=== PATIENT | female | born 1965 ===

== ENCOUNTER 2017-05-15 19:50 | Observation (INO) | payer BC, OTHER ==
[2017-05-16] MEDS ORDERED: IPRATROPIUM-ALBUTEROL 3 ML NEB INHALATION PRN (01:56)
[2017-05-16] MEDS: methylPREDNISolone SOD SUCCI 125 MG/2 ML VIAL IV SCH ×4 (06:12→23:51)
[2017-05-16] MEDS: SODIUM CHLORIDE 0.9% 1,000 ML IV SCH (06:15)
[2017-05-16] MEDS: SYMBICORT 160-4.5 MCG INHALER INHALATION SCH ×2 (07:05→20:44)
[2017-05-16] MEDS: IPRATROPIUM-ALBUTEROL 3 ML NEB INHALATION SCH ×4 (07:05→20:44)
[2017-05-16 07:42] LABS: Glucose,Whole Blood 123 mg/dL (75-99)
[2017-05-16] MEDS: amLODIPine 10 MG TAB PO SCH (08:13)
[2017-05-16] MEDS: HYDROCHLOROTHIAZIDE 25 MG TAB PO SCH (08:13)
[2017-05-16] MEDS: HEPARIN SODIUM,PORCINE 5,000 UNIT/ML 1 ML VIAL SQ SCH ×3 (08:13→23:51)
[2017-05-16] MEDS: AZITHROMYCIN 500 MG TAB PO SCH (08:13)
[2017-05-16] MEDS: PANTOPRAZOLE 40 MG TABLET PO SCH (08:13)
[2017-05-16 08:26] LABS: Basophils % (A) 0 %; CHCM 31.8; Eosinophils % (A) 0 %; HCT 39.5 % (34.0-46.0); HDW 2.18; HGB 12.9 gm/dL (11.4-16.0); Luc # (Auto) 0.04; Luc % (Auto) 0; Lymphocytes # (A) 0.8 k/uL (1.0-4.8); Lymphocytes % (A) 9 %; MCHC 32.7 g/dL (31.0-37.0); MCV 94.8 fL (80.0-100.0); Monocytes # (A) 0.2 k/uL (0-1.0); Monocytes % (A) 2 %; Neutrophils # (A) 8.1 k/uL (1.3-7.7); Neutrophils % (A) 88 %; RBC 4.16 m/uL (3.80-5.40); RDW 13.3 % (11.5-15.5); WBC 9.2 k/uL (3.8-10.6); WBC (Perox) 9.58
[2017-05-16 08:41] LABS: Anion Gap 10 mmol/L; Blood Urea Nitrogen 13 mg/dL (7-17); Calcium 9.3 mg/dL (8.4-10.2); Carbon Dioxide 22 mmol/L (22-30); Chloride 107 mmol/L (98-107); Glucose 145 mg/dL (74-99); Magnesium 1.7 mg/dL (1.6-2.3); Non-African American GFR(MDRD) >60 (>60 ml/min/1.73 sqM); Potassium 4.2 mmol/L (3.5-5.1); Sodium 139 mmol/L (137-145)
[2017-05-16] MEDS ORDERED: Magnesium Replacement Protocol 1 EACH MISC MISCELLANE PRN (10:02)
[2017-05-16 12:37] LABS: Glucose,Whole Blood 114 mg/dL (75-99)
[2017-05-16 12:54] LABS: Hemoglobin A1C 5.7 % (4.2-6.1)
[2017-05-16 17:03] LABS: Glucose,Whole Blood 115 mg/dL (75-99)
[2017-05-16] MEDS: TEMAZEPAM 15 MG CAP PO PRN (21:56)
--- NOTE | 2017-05-16 22:08 | P.HPIM ---
History of Present Illness H&P Date: 05/16/17 Chief Complaint: Difficulty in breathing Patient is a 51-year-old female with a known history of COPD on home oxygen which she uses occasionally, hypertension, degenerative disc disease and other medical problems initially presented to the [facility] with complaints of difficulty breathing for the past 2 days. Patient was transferred to [facility] for further evaluation. Patient did have exacerbation of COPD about a year back at [facility]. Patient did have a cough at home but with minimal sputum production. No fever and no chills. No compressive chest pain. Patient has never been intubated in the past. Evidently patient has been out of her medications for the past 2 weeks. Denied any exposure to cold weather. No recent travel or sick contacts at home. Patient did have a smoking history significantly. Quit one year back. Patient had chest x-ray at [facility] showed COPD changes. No pneumonia or pneumothorax Review of Systems CONSTITUTIONAL: No fever, no malaise, no fatigue. HEENT: No recent visual problems or hearing problems. Denied any sore throat. CARDIOVASCULAR: No chest pain, orthopnea, PND, no palpitations, no syncope. PULMONARY: Cough with minimal sputum production. And difficulty breathing.. GASTROINTESTINAL: No diarrhea, no nausea, no vomiting, no abdominal pain. Normoactive bowel sounds. NEUROLOGICAL: No headaches, no weakness, no numbness. HEMATOLOGICAL: Denies any bleeding or petechiae. GENITOURINARY: Denies any burning micturition, frequency, or urgency. MUSCULOSKELETAL/RHEUMATOLOGICAL: Denies any joint pain, swelling, or any muscle pain. ENDOCRINE: Denies any polyuria or polydipsia. The rest of the 14-point review of systems is negative. Past Medical History Past Medical History: Asthma, Chest Pain / Angina, COPD, Deep Vein Thrombosis ( DVT), GERD/Reflux, Hypertension, Osteoarthritis (OA), Pneumonia, Respiratory Disorder Additional Past Medical History / Comment(s): Degenerative Disk Disease, Herniated disk in lumbar, Sciatica, post menopausal History of Any Multi-Drug Resistant Organisms: None Reported Past Surgical History: Cholecystectomy Past Anesthesia/Blood Transfusion Reactions: No Reported Reaction Past Psychological History: Anxiety, Bipolar, Depression, Panic Disorder, PTSD Smoking Status: Former smoker Past Alcohol Use History: None Reported Past Drug Use History: Cocaine Additional Drug Use History / Comment(s): used for 9 years, started when 34 years old, went to rehab and has been sober since 2006. - Past Family History Father Family Medical History: Cancer, Diabetes Mellitus, Hypertension Additional Family Medical History / Comment(s): prostate cancer Mother Family Medical History: COPD Brother(s) History Unknown: Yes Sister(s) History Unknown: Yes Medications and Allergies Home Medications Medication Instructions Recorded Confirmed Type Albuterol Inhaler [Ventolin Hfa 1 - 2 puff INHALATION RT-Q4H PRN 05/15/17 History Inhaler] Budesonide-Formot 160-4.5 Mcg 2 puff INHALATION RT-BID 05/15/17 05/16/17 History [Symbicort 160-4.5 Mcg Inhaler] Hydrochlorothiazide [Hydrodiuril] 25 mg PO DAILY 05/15/17 05/16/17 History Omeprazole 20 mg PO AC-BRKFST 05/15/17 05/16/17 History Tiotropium [place] [Spiriva] 1 cap INHALATION RT-DAILY 05/15/17 05/15/17 History amLODIPine [Norvasc] 10 mg PO DAILY 05/15/17 05/16/17 History Allergies Allergy/AdvReac Type Severity Reaction Status Date / Time No Known Allergies Allergy Verified 05/15/17 23:57 Physical Exam Vitals: Vital Signs Temp Pulse Pulse Resp BP Pulse Ox 05/16/17 11:05 92 05/16/17 10:56 88 05/16/17 07:19 90 05/16/17 07:08 94 94 L 05/16/17 07:00 96.7 F L 61 16 123/71 96 05/15/17 23:03 97.0 F L 93 18 125/60 96 Intake and Output 05/15/17 05/16/17 05/16/17 22:59 06:59 14:59 Intake Total 1000 Balance 1000 Intake: Intake, IV Titration 1000 Amount Sodium Chloride 0.9% 1, 1000 000 ml @ 20 mls/hr IV . Q24H [facility] Rx#:[id number] Other: Voiding Method Toilet # Voids 1 Weight 56 kg PHYSICAL EXAMINATION: Patient is lying in the bed comfortably, no acute distress, awake alert and oriented.. HEENT: Normocephalic. Neck is supple. Pupils reactive. Nostrils clear. Oral cavity is moist. Ears reveal no drainage. Neck reveals no JVD, carotid bruits, or thyromegaly. CHEST EXAMINATION: Trachea is central. Symmetrical expansion. Bilateral diffuse wheezing present. No crackles.. CARDIAC: Normal S1, S2 with no gallops. No murmurs ABDOMEN: Soft. Bowel sounds normal. No organomegaly. No abdominal bruits. Extremities reveal no edema. No clubbing or cyanosis Neurologically awake, alert, oriented x3 with well-coordinated movements. Skin: no rash or skin lesions Musculoskeletal: no joint swelling or deformity. Results CBC & Chem 7: 05/16/17 07:51 05/16/17 07:51 Labs: Abnormal Lab Results - Last 24 Hours (Table) 05/16/17 05/16/17 05/16/17 Range/Units 07:04 07:51 07:51 Neutrophils # 8.1 H (1.3-7.7) k/uL Lymphocytes # 0.8 L (1.0-4.8) k/uL Glucose 145 H (74-99) mg/dL POC Glucose (mg/dL) 123 H (75-99) mg/dL Thrombosis Risk Factor Assmnt - DVT/VTE Prophylaxis DVT/VTE Prophylaxis: Pharmacologic Prophylaxis ordered - Choose All That Apply Any of the Below Risk Factors Present?: Yes Each Factor Represents 1 point: Abnormal pulmonary function (COPD), Age 41-60 years Other Risk Factors: Yes Each Risk Factor Represents 3 Points: History of DVT/PE Other congenital or acquired thrombophilia - If yes, enter type in comment: No Thrombosis Risk Factor Assessment Total Risk Factor Score: 5 Thrombosis Risk Factor Assessment Level: High Risk Assessment and Plan Plan: #1 acute COPD exacerbation #2 acute tracheobronchitis. #3 hypertension. Controlled. #4 degenerative joint disease. #5 COPD on home oxygen. Patient is not using on a regular basis #6 DVT prophylaxis Plan: Patient will be continued on IV Solu-Medrol and breathing treatments. Continue the antibiotics and the fall of ceftriaxone and azithromycin. We will continue with the DVT prophylaxis and follow up closely. Time with Patient: Greater than 30
[2017-05-17] MEDS: SODIUM CHLORIDE 0.9% 1,000 ML IV SCH (03:20)
[2017-05-17] MEDS: methylPREDNISolone SOD SUCCI 125 MG/2 ML VIAL IV SCH ×3 (05:41→18:01)
[2017-05-17 07:16] LABS: Glucose,Whole Blood 126 mg/dL (75-99)
[2017-05-17] MEDS: IPRATROPIUM-ALBUTEROL 3 ML NEB INHALATION SCH ×4 (07:44→19:15)
[2017-05-17] MEDS: SYMBICORT 160-4.5 MCG INHALER INHALATION SCH ×2 (07:44→19:15)
[2017-05-17] MEDS: HYDROCHLOROTHIAZIDE 25 MG TAB PO SCH (08:15)
[2017-05-17] MEDS: PANTOPRAZOLE 40 MG TABLET PO SCH (08:15)
[2017-05-17] MEDS: amLODIPine 10 MG TAB PO SCH (08:15)
[2017-05-17] MEDS: AZITHROMYCIN 500 MG TAB PO SCH (08:15)
[2017-05-17] MEDS: HEPARIN SODIUM,PORCINE 5,000 UNIT/ML 1 ML VIAL SQ SCH ×2 (08:17→17:02)
[2017-05-17 12:10] LABS: Glucose,Whole Blood 103 mg/dL (75-99)
--- NOTE | 2017-05-17 12:22 | CDI ---
[facility] [address] [facility] [place] [address] Documentation Clarification Form Date: 05/17/2017 12:14:00 PM From: Lesley Blair Admit Date: 05/15/2017 10:55:00 PM Patient Name: Ava Johnson Visit Number: [id number] Dr. Patrica Herrera The patient presented with the following respiratory symptoms: difficulty in breathing. Documentation and location in medical record included: History/Risk Factors: COPD, exsmoker Clinical Indicators: H&P states 'COPD on home oxygen' Treatment: Breathing tx O2 nasal cannula In your professional opinion, can you please clarify if these findings signify one of the following conditions? o Chronic Respiratory failure with hypercapnia o Chronic Respiratory failure with hypoxia o Chronic Respiratory failure unknown type o Other Diagnosis, please specify o Unable to determine Please document in your progress notes and discharge summary in order to capture severity of illness and risk of mortality. Include clinical findings that support your diagnosis. FYI: Press F11 to launch patient chart. EMMY
[2017-05-17] MEDS ORDERED: guaiFENesin SYRUP 100MG/5ML 200 MG/10 ML CUP PO PRN (14:28)
[2017-05-17] MEDS ORDERED: guaiFENesin-DM 100-10MG/5ML 10 ML CUP PO PRN (14:43)
[2017-05-17 17:10] LABS: Glucose,Whole Blood 119 mg/dL (75-99)
[2017-05-17 20:57] LABS: Glucose,Whole Blood 125 mg/dL (75-99)
[2017-05-17] MEDS: TEMAZEPAM 15 MG CAP PO PRN (22:16)
--- NOTE | 2017-05-17 23:11 | P.PN ---
Subjective Principal diagnosis: Acute COPD exacerbation Patient is a 51-year-old female with a known history of COPD on home oxygen which she uses occasionally, hypertension, degenerative disc disease and other medical problems initially presented to the [facility] with complaints of difficulty breathing for the past 2 days. Patient was transferred to [facility] for further evaluation. Patient did have exacerbation of COPD about a year back at [facility]. Patient did have a cough at home but with minimal sputum production. No fever and no chills. No compressive chest pain. Patient has never been intubated in the past. Evidently patient has been out of her medications for the past 2 weeks. Denied any exposure to cold weather. No recent travel or sick contacts at home. Patient did have a smoking history significantly. Quit one year back. Patient had chest x-ray at [facility] showed COPD changes. No pneumonia or pneumothorax 05/17/2017. Patient says that her breathing is improving. Patient otherwise still having wheezing. No other acute overnight issues. Patient is complaining of cough with yellowish sputum production and requesting cough syrup. No fever no chills. No compressive chest pain. No nausea no vomiting no abdominal pain or diarrhea. Objective - Vital Signs Vital signs: Vital Signs Temp 97.1 F L 05/17/17 15:00 Pulse 95 05/17/17 19:29 Resp 18 05/17/17 15:02 BP 128/62 05/17/17 15:00 Pulse Ox 95 05/17/17 15:13 Intake & Output 05/17/17 05/17/17 05/18/17 06:59 18:59 06:59 Weight 56 kg Other: Voiding Method Toilet Toilet # Voids 2 1 - Exam Patient is lying in the bed comfortably, no acute distress, awake alert and oriented.. HEENT: Normocephalic. Neck is supple. Pupils reactive. Nostrils clear. Oral cavity is moist. Ears reveal no drainage. Neck reveals no JVD, carotid bruits, or thyromegaly. CHEST EXAMINATION: Trachea is central. Symmetrical expansion. Expiratory wheezing. Improved air entry. No crackles.. CARDIAC: Normal S1, S2 with no gallops. No murmurs ABDOMEN: Soft. Bowel sounds normal. No organomegaly. No abdominal bruits. Extremities reveal no edema. No clubbing or cyanosis Neurologically awake, alert, oriented x3 with well-coordinated movements. Skin: no rash or skin lesions Musculoskeletal: no joint swelling or deformity. - Labs CBC & Chem 7: 05/16/17 07:51 05/16/17 07:51 Labs: Abnormal Lab Results - Last 24 Hours (Table) 05/17/17 05/17/17 05/17/17 Range/Units 07:14 12:06 16:57 POC Glucose (mg/dL) 126 H 103 H 119 H (75-99) mg/dL 05/17/17 Range/Units 20:53 POC Glucose (mg/dL) 125 H (75-99) mg/dL Assessment and Plan Plan: #1 acute COPD exacerbation. Patient is still wheezing #2 acute tracheobronchitis. #3 hypertension. Controlled. #4 degenerative joint disease. #5 COPD on home oxygen. Patient is not using on a regular basis #6 DVT prophylaxis Plan: Patient will be continued on IV Solu-Medrol and breathing treatments. Continue the antibiotics and the fall of ceftriaxone and azithromycin. Will change his IV Solu-Medrol to prednisone. Patient was started on Robitussin-DM for cough. We will continue with the DVT prophylaxis and follow up closely.
[2017-05-18] MEDS: methylPREDNISolone SOD SUCCI 125 MG/2 ML VIAL IV SCH ×3 (00:40→13:01)
[2017-05-18] MEDS: HEPARIN SODIUM,PORCINE 5,000 UNIT/ML 1 ML VIAL SQ SCH ×4 (00:41→14:44)
[2017-05-18] MEDS: SODIUM CHLORIDE 0.9% 1,000 ML IV SCH (02:36)
[2017-05-18 07:33] LABS: Glucose,Whole Blood 111 mg/dL (75-99)
[2017-05-18 07:43] VITALS: BP 142/80; TEMP 96.6
[2017-05-18] MEDS: PANTOPRAZOLE 40 MG TABLET PO SCH (07:56)
[2017-05-18] MEDS: amLODIPine 10 MG TAB PO SCH (07:57)
[2017-05-18] MEDS: AZITHROMYCIN 500 MG TAB PO SCH (07:57)
[2017-05-18] MEDS: HYDROCHLOROTHIAZIDE 25 MG TAB PO SCH (07:57)
[2017-05-18] MEDS: SYMBICORT 160-4.5 MCG INHALER INHALATION SCH (08:06)
[2017-05-18] MEDS: IPRATROPIUM-ALBUTEROL 3 ML NEB INHALATION SCH ×3 (08:06→15:37)
[2017-05-18 08:09] VITALS: RESP 16
[2017-05-18 12:04] LABS: Glucose,Whole Blood 82 mg/dL (75-99)
[2017-05-18] MEDS ORDERED: predniSONE 50 MG TAB PO SCH (13:30)
[2017-05-18 15:47] VITALS: PULSE 90
--- NOTE | 2017-07-01 22:25 | P.DS ---
Providers Date of admission: 05/15/17 22:55 Expected date of discharge: 05/18/17 Attending physician: Patrica Herrera Primary care physician: Stated None Hospital Course: Discharge diagnosis #1 acute COPD exacerbation #2 acute tracheobronchitis. #3 hypertension. Controlled. #4 degenerative joint disease. #5 COPD on home oxygen/ chronic hypoxic respiratory failure on home oxygen. Patient is not using on a regular basis #6 DVT prophylaxis Hospital course Patient is a 51-year-old female with a known history of COPD on home oxygen which she uses occasionally, hypertension, degenerative disc disease and other medical problems initially presented to the [facility] with complaints of difficulty breathing for the past 2 days. Patient was transferred to [facility] for further evaluation. Patient did have exacerbation of COPD about a year back at [facility]. Patient did have a cough at home but with minimal sputum production. No fever and no chills. No compressive chest pain. Patient has never been intubated in the past. Evidently patient has been out of her medications for the past 2 weeks. Denied any exposure to cold weather. No recent travel or sick contacts at home. Patient did have a smoking history significantly. Quit one year back. Patient had chest x-ray at [facility] showed COPD changes. No pneumonia or pneumothorax Patient was continued on IV Solu-Medrol and breathing treatments. Continued the antibiotics and the fall of ceftriaxone and azithromycin. Patient did improve clinically and will be discharged home with steroid [place] dose. Discharge physical examination was done Patient Condition at Discharge: Fair Plan - Discharge Summary New Discharge Prescriptions: New Albuterol Nebulized [Ventolin Nebulized] 2.5 mg INHALATION Q6H PRN #60 ml PRN Reason: Wheezing Azithromycin [Zithromax] 500 mg PO DAILY #3 tab Temazepam [Restoril] 15 mg PO HS PRN #7 cap PRN Reason: Insomnia predniSONE See Taper PO DAILY #21 tab Continue Tiotropium [place] [Spiriva] 1 cap INHALATION RT-DAILY Omeprazole 20 mg PO AC-BRKFST Budesonide-Formot 160-4.5 Mcg [Symbicort 160-4.5 Mcg Inhaler] 2 puff INHALATION RT-BID Albuterol Inhaler [Ventolin Hfa Inhaler] 1 - 2 puff INHALATION RT-Q4H PRN PRN Reason: Shortness Of Breath amLODIPine [Norvasc] 10 mg PO DAILY Hydrochlorothiazide [Hydrodiuril] 25 mg PO DAILY Discharge Medication List Albuterol Inhaler [Ventolin Hfa Inhaler] 1 - 2 puff INHALATION RT-Q4H PRN [History] Budesonide-Formot 160-4.5 Mcg [Symbicort 160-4.5 Mcg Inhaler] 2 puff INHALATION RT-BID 05/15/17 [History] Hydrochlorothiazide [Hydrodiuril] 25 mg PO DAILY 05/15/17 [History] Omeprazole 20 mg PO AC-BRKFST 05/15/17 [History] Tiotropium [place] [Spiriva] 1 cap INHALATION RT-DAILY 05/15/17 [History] amLODIPine [Norvasc] 10 mg PO DAILY 05/15/17 [History] Albuterol Nebulized [Ventolin Nebulized] 2.5 mg INHALATION Q6H PRN #60 ml [Rx] Azithromycin [Zithromax] 500 mg PO DAILY #3 tab 05/18/17 [Rx] Temazepam [Restoril] 15 mg PO HS PRN #7 cap 05/18/17 [Rx] predniSONE See Taper PO DAILY #21 tab 05/18/17 [Rx] Discharge Disposition: HOME SELF-CARE
== END 2017-05-18 15:55 | disposition home or self-care (01) ==
LOC: 4MS4W 22:55 → INTOOBSV 22:55
PROVIDERS: ADMIT Internal Medicine; ATTEND Internal Medicine
DX: J44.1 Chronic obstructive pulmonary disease with (acute) exacerbation (principal); Z99.81 Dependence on supplemental oxygen; J44.0 Chronic obstructive pulmonary disease with (acute) lower respiratory infection; J20.9 Acute bronchitis, unspecified; I10 Essential (primary) hypertension; K21.9 Gastro-esophageal reflux disease without esophagitis; M51.36 Other intervertebral disc degeneration, lumbar region; M19.90 Unspecified osteoarthritis, unspecified site; M54.30 Sciatica, unspecified side; Z83.3 Family history of diabetes mellitus; Z82.5 Family history of asthma and other chronic lower respiratory diseases; Z82.49 Family history of ischemic heart disease and other diseases of the circulatory system; Z87.891 Personal history of nicotine dependence; Z79.899 Other long term (current) drug therapy; Z79.51 Long term (current) use of inhaled steroids; Z90.49 Acquired absence of other specified parts of digestive tract; Z91.14 Patient's other noncompliance with medication regimen; Z86.79 Personal history of other diseases of the circulatory system; Z86.718 Personal history of other venous thrombosis and embolism; Z87.01 Personal history of pneumonia (recurrent); Z80.42 Family history of malignant neoplasm of prostate
CPT/HCPCS: 96376 ×3; 96365; 96366 ×2; 96375; 94640 ×6; 94760 ×2; 80048; 83036; 83735 ×2; 85025; G0379; G0378 ×4; J2930 ×3; J0696 ×3; J7512

== ENCOUNTER → 2019-05-21 | Outpatient (CLI) | payer OTHER ==
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
== END | disposition home or self-care (01) ==
LOC: PNWHC3 13:39
PROVIDERS: ATTEND Student in an Organized Health Care Education/Training Program
DX: M54.16 Radiculopathy, lumbar region (principal); F14.10 Cocaine abuse, uncomplicated; Z87.891 Personal history of nicotine dependence; Z91.410 Personal history of adult physical and sexual abuse; Z79.1 Long term (current) use of non-steroidal anti-inflammatories (NSAID); Z79.899 Other long term (current) drug therapy; Z79.891 Long term (current) use of opiate analgesic; Z79.51 Long term (current) use of inhaled steroids
CPT/HCPCS: 99211

== ENCOUNTER 2019-06-09 08:16 | Day surgery (SDC) | payer OTHER ==
[2019-06-04 13:36] VITALS: BMI 18.8
[~2019-06-09 08:16] MED LIST: LACTATED RINGERS 1,000 ML IV SCH
[2019-06-09 09:11] VITALS: TEMP 98.2
[2019-06-09] MEDS ORDERED: LACTATED RINGERS 1,000 ML IV ONE (09:11)
[2019-06-09 09:19] LABS: Glucose,Whole Blood 75 mg/dL (75-99)
[2019-06-09] MEDS ORDERED: LIDOCAINE 1% 20 ML VIAL (10MG/ML) FOR IV START INTRADERMA ONE (09:20)
--- NOTE | 2019-06-09 10:13 | P.PCN ---
Date of Procedure: 06/09/19 Procedure(s) Performed: PREOPERATIVE DIAGNOSIS: Lumbar Radicular pain POSTOPERATIVE DIAGNOSIS: Same PROCEDURE Lumbar epidural steroid injection under fluoroscopic guidance at the L5-S1, left paramedian level. ANESTHESIA: Local with 1% lidocaine 3 ml; moderate sedation with 1 mg of midazolam, 100 g of fentanyl EBL: Minimal PROCEDURE INDICATION: By radicular pain, left. PROCEDURE DESCRIPTION / TECHNIQUE: The patient was seen and identified in the preoperative area. Risks, benefits, complications including but not limited to infections ,bleeding ,allergic reaction to the medications ,nerve damage and not complete pain relief , and alternatives were discussed with the patient. The patient agreed to proceed with the procedure and signed the consent. IV was started, and vital signs were stable. Patient was taken to the OR and time out was completed. The patient was placed in the prone position on procedure table and a pillow was placed under the abdomen to reduce lumbar lordosis. The lumbosacral area was prepped and draped in the usual sterile fashion. The patient was closely monitored during the procedure. Conscious sedation was used during the procedure to decrease patients anxiety. Vital signs was monitored during the entire procedure. Using anterior-posterior fluoroscopy, the L5-S1 interlaminar space was identified and the skin over this site was marked and then infiltrated with 1% lidocaine subcutaneously. Subsequently, a 20-gauge Tuohy epidural needle was inserted and advanced toward the epidural space using the loss of resistance technique and guided by AP and lateral fluoroscopy. The correct needle position in the epidural space was verified. After negative aspiration, a solution containing ED milligrams of Depo-Medrol, 2 mL of 1% preservative-free lidocaine, 2 mL of preservative-free normal saline was injected. The needle was withdrawn intact, skin was cleansed, and bandages were applied. Images were saved to the chart. COMPLICATIONS: None DISPOSITION / PLANS: The patient was returned to the supine position and transferred to the recovery area in a stable condition for observation. There was no evidence of lower extremity motor or sensory deficit after the procedure. Patient was discharged from the recovery room after meeting discharge criteria. Home discharge instructions were given to the patient by the staff. Follow up plan: For repeat procedure, if she has good relief with this procedure.
[2019-06-09] MEDS ORDERED: IV FLUID CONTINUATION 1,000 ML IV ONE (10:17)
[2019-06-09 10:25] VITALS: RESP 16
[2019-06-09 10:41] VITALS: BP 115/76; PULSE 76
--- NOTE | 2019-06-09 13:45 | FL ---
Fluoroscopy HISTORY: Pain 7 seconds fluoroscopy time supplied to the referring clinician. 2 intraoperative C-arm images docume nt the procedure. See dictated report from anesthesia.
== END 2019-06-09 10:51 ==
LOC: ORPAIN 08:16
PROVIDERS: ATTEND Student in an Organized Health Care Education/Training Program
DX: M51.16 Intervertebral disc disorders with radiculopathy, lumbar region (principal); J44.9 Chronic obstructive pulmonary disease, unspecified; I10 Essential (primary) hypertension; F14.11 Cocaine abuse, in remission; K21.9 Gastro-esophageal reflux disease without esophagitis; M19.90 Unspecified osteoarthritis, unspecified site; Z86.718 Personal history of other venous thrombosis and embolism; Z91.410 Personal history of adult physical and sexual abuse; Z87.01 Personal history of pneumonia (recurrent); Z90.49 Acquired absence of other specified parts of digestive tract; Z98.51 Tubal ligation status; Z87.891 Personal history of nicotine dependence; Z79.51 Long term (current) use of inhaled steroids; Z79.52 Long term (current) use of systemic steroids; Z79.899 Other long term (current) drug therapy; Z83.3 Family history of diabetes mellitus; Z82.49 Family history of ischemic heart disease and other diseases of the circulatory system; Z80.42 Family history of malignant neoplasm of prostate; Z83.6 Family history of other diseases of the respiratory system
CPT/HCPCS: 62323; J2250; J1030; J3010; Q9966

== ENCOUNTER 2019-07-07 06:58 | Day surgery (SDC) | payer OTHER ==
[2019-07-03 15:12] VITALS: BMI 18.7
[2019-07-07 07:22] VITALS: TEMP 97.7
--- NOTE | 2019-07-07 08:08 | P.PCN ---
Date of Procedure: 07/07/19 Procedure(s) Performed: PREOPERATIVE DIAGNOSIS: 1- Lumbar radiculopathy POSTOPERATIVE DIAGNOSIS: 1-Lumber radiculopathy PROCEDURE 1. Lumbar epidural steroid injection under fluoroscopic guidance at the L5-S1 level. (Fluoroscopy imaging was available in radiology department) Left paramedial 2. Lumbar epidurogram. ANESTHESIA: Local with 1% lidocaine 3 ml and , moderate sedation with intravenous Versed 1 mg ,and fentanyle 100 Mcg EBL: Minimal PROCEDURE INDICATION: The patient with low back pain and radiculitis symptoms unresponsive to conservative treatment. Fluoroscopy was used to optimize visualization of the needle placement and to maximize safety. PROCEDURE DESCRIPTION / TECHNIQUE: The patient was seen and identified in the preoperative area. Risks, benefits, complications including but not limited to infections ,bleeding ,allergic reaction to the medications ,nerve damage and not complete pain releife , and alternatives were discussed with the patient. The patient agreed to proceed with the procedure and signed the consent. IV was started, and vital signs were stable. Patient was taken to the OR and time out was completed. The patient was placed in the prone position on procedure table and a pillow was placed under the abdomen to reduce lumbar lordosis. The lumbosacral area was prepped and draped in the usual sterile fashion.ere closely monitored during the procedure. Conscious sedation was used during the procedure to decrease patients anxiety. Vital signs was monitered during the entire procedure. Using anterior-posterior fluoroscopy, the L5-S1 interlaminar space was identified and the skin over this site was marked and then infiltrated with 1% lidocaine subcutaneously. Subsequently, a 20-gauge Tuohy epidural needle was inserted and advanced toward the epidural space using the ``Loss of resistance technique and guided by AP and lateral fluoroscopy. The correct needle position in the epidural space was verified with the injection of 2 mL of the water soluble contrast dye Isovue 200 contrast and observing an excellent epidurogram with the epidural spread of the dye, after negative aspiration for blood and CSF and in the absence of paresthesias. Again after negative aspiration, a 6 ml mixture containing 80 mg of Depo-medrol , and 2 ml of preservative free Normal Saline, and 2 ml of preservative free lidocaine 1% solution was injected and a washout of epidurogram was seen. Needle was withdrawn intact, skin was cleansed, and bandages were applied. COMPLICATIONS: None DISPOSITION / PLANS: The patient was placed in a supine position and transferred to the recovery area in a stable condition for observation. There was no evidence of lower extremity motor or sensory deficit after the procedure. Patient was discharged from the recovery room after meeting discharge criteria. Home discharge instructions were given to the patient by the staff. The patient was reexamined prior to discharge. The patient will schedule a follow up in the clinic in 2-4 weeks.
[2019-07-07] MEDS ORDERED: IV FLUID CONTINUATION 750 ML IV ONE (08:12)
[2019-07-07 08:29] VITALS: BP 128/86; PULSE 80; RESP 18
--- NOTE | 2019-07-07 09:53 | FL ---
Fluoroscopy HISTORY: Pain 2 seconds fluoroscopy time supplied to the referring clinician. 1 intraoperative C-arm images docume nt the procedure. See dictated report from anesthesia.
== END 2019-07-07 08:40 | disposition home or self-care (01) ==
LOC: ORPAIN 06:58
PROVIDERS: ATTEND Specialist
DX: M54.16 Radiculopathy, lumbar region (principal); I10 Essential (primary) hypertension; I25.10 Atherosclerotic heart disease of native coronary artery without angina pectoris; J44.9 Chronic obstructive pulmonary disease, unspecified; Z86.718 Personal history of other venous thrombosis and embolism
CPT/HCPCS: 62323; J2250; J1030; J3010; Q9966

== ENCOUNTER → 2019-07-27 | Outpatient (CLI) | payer OTHER ==
[2019-07-27 13:45] VITALS: BP 131/93; PULSE 121; RESP 20
--- NOTE | 2019-07-27 14:08 | P.PAINPG ---
Subjective Progress Note Date: 07/27/19 This is a follow-up visit for this 53 years old female with a chronic history of severe low back pain with radiation to the lower extremity, she is diagnosed with lumbar degenerative disc disease and lumbar spondylosis with lumbar facet arthropathy, recently we have done lumbar epidural steroid injection under fluoroscopy guidance x2 , she had short-term benefit from both of them, and she is currently complaining of severe low back pain with radiation to the lower extremity, the pain is constant and increases with any activity, she denies any motor or sensory deficits, no fever or night sweats she continue to use Flexeril and Ultram for pain and she had some benefit from it, and she had no side ef fects from the medication, she is getting prescription refills from her primary care Objective - Vital Signs Vital signs: Vital Signs Temp Pulse 121 H 07/27/19 13:42 Resp 20 07/27/19 13:42 BP 131/93 07/27/19 13:42 Pulse Ox 100 07/27/19 13:42 - Exam Physical Examinations : -Constitutiona : Cooperative , not in acute distress . -HEENT : nech : supple , no Lymphadenopathy , normal thyroid size . : eyes : no ptosis , no icterus, no photophobia . - neurologic : Cranial nerve II to XII intact , no focal neurological deffecit . -psychatric : alert , oriented X 3 , appropriate affect , intact judgment and insight . -Lymphatic : no Lymphadenopathy . - musculoskeltal : Lumber spine moter stegnth lower extremities ,thigh and legs 5/5 Right side , 5/5 Left side deep tendon reflexes : normal Knee Jerk , normal ankle Jerk lumber facet Loading Test =positive Right , positive Left Range of motion of the lumbar spine Flexion 30 degrees, extension 10 degrees strait leg raising test = positive at 30 degree Fabere test= positive Right , and positive LT . Sever tenderness over the Sacroiliac joint on the Right , and Left sides MRI of the lumbar spine L4 5 bulging disc disease, L5-S1 moderate to severe neuroforaminal stenosis Assessment and Plan Plan: Assessment and plan=1-lumbar radiculopathy .2-lumbar degenerative disc disease .3-lumbar spondylosis with lumbar facet arthropathy Patient had short-term benefit after lumbar epidural steroid injections x2 . She could benefit from medial branch blocks lumbar area L3, L4, L5 on the fluoroscopy guidance and possible RFA Time with Patient: Less than 30 PQRS Measure Charge Sheet Measure #130: Documentation of Current Meds in Medical Chart: Patient's medications documented in chart Measure #226: Tobacco Use: Screen & Cessation Intervention: Pt not a tobacco user Measure #111: Pneumonia Vaccination: Pneumococcal vaccine administered or previously received Measure #47: Advance Care Plan: Advance care planning discussed & documented, pt chose/unable to give Measure #412: Opioid Treatment Agreement: No documentation of signed opioid treatment agreement Measure #408: Opioid Therapy Follow-up Evaluation: Patient had NO f/u eval minimum every 3 months during opioid therapy Measure #317: Preventitive Care & Scrn High Bld Press & F/U: Normal blood pressure, f/u not required Measure #128: Body Mass Index (BMI) Screening & Follow-up: BMI documented within normal parameters Measure #131: Pain Assessment & Follow-up: Pain positive & plan documented, Follow-up scheduled Measure #431: Unhealthy Alcohol Use Preventative Care & Scrn: Patient not identified as an unhealthy alcohol user PQRS Narrative: Smoking Status Former smoker Blood Pressure 131/93 Pain Intensity [Right Anterior 7 Lees] Scale Used Numeric (1 - 10) Hx Alcohol Use (MH) No Home Medications: Ambulatory Orders Albuterol Inhaler [Ventolin Hfa Inhaler] 1 - 2 puff INHALATION Q4HR PRN 05/15/17 Omeprazole 20 mg PO DAILY 05/15/17 amLODIPine [Norvasc] 10 mg PO DAILY 05/15/17 Albuterol Nebulized [Ventolin Nebulized] 2.5 mg INHALATION Q6H PRN #60 ml 05/18/17 Beclomethasone Dipropionate [Qvar 80 mcg] 1 puff INHALATION BID 05/15/19 Cyclobenzaprine [Flexeril] 10 mg PO BID PRN 05/15/19 Gabapentin [Neurontin] 300 mg PO BID 05/15/19 Montelukast [Singulair] 10 mg PO DAILY 05/15/19 Benralizumab [Fasenra] 30 mg SQ Q60D 06/04/19 traMADol HCL [Ultram] 50 mg PO BID PRN 06/04/19 Controlled Substance Measures - Controlled Substance Measures Is patient prescribed a controlled substance at discharge?: No
== END | disposition home or self-care (01) ==
LOC: PNWHC3 13:10
PROVIDERS: ATTEND Specialist
DX: M51.16 Intervertebral disc disorders with radiculopathy, lumbar region (principal); M47.26 Other spondylosis with radiculopathy, lumbar region; M46.96 Unspecified inflammatory spondylopathy, lumbar region; Z87.891 Personal history of nicotine dependence; Z79.51 Long term (current) use of inhaled steroids; Z79.891 Long term (current) use of opiate analgesic; Z79.899 Other long term (current) drug therapy
CPT/HCPCS: 99211

== ENCOUNTER → 2019-08-13 | Day surgery (SDC) | payer OTHER ==
[2019-08-12 12:54] VITALS: BMI 18.1
[~2019-08-13] MED LIST changes: +IV FLUID CONTINUATION 1,000 ML IV ONE; +LIDOCAINE 1% 20 ML VIAL (10MG/ML) FOR IV START INTRADERMA ONE
[2019-08-13 07:10] VITALS: RESP 16; TEMP 97.8
[2019-08-13 08:33] VITALS: BP 122/80; PULSE 92
--- NOTE | 2019-08-13 09:09 | P.PCN ---
Date of Procedure: 08/13/19 Procedure(s) Performed: PREOPERATIVE DIAGNOSIS : Lumbar spondylosis with Facet Arthropathy without myelopathy POSTOPERATIVE DIAGNOSIS: same PROCEDURE: First Diagnostic lumbar medial branch block with fluoroscopy at L3, L4, L5 [bilateral] which covers facets L4-5 and L5-S1 ANESTHESIA: Local anesthetic; moderate IV sedation with Versed 2 mg, sedation time 13 minutes Fluoroscopy was used for the procedure and images were saved in the radiology portion of the chart. Surgeon: Samira Salgado MD PROCEDURE INDICATION: Lumbar back pain without radiculopathy, not responsive to conservative management. PROCEDURE DESCRIPTION: the patient was seen and identified in the preop holding area , risks and benefits and possible complications of the procedure and alternatives were discussed with the patient, and the patient agreed to proceed with the procedure and signed the consent . IV was started , vital signs were monitored during the procedure and fluoroscopy was used to maximize the benefit and accuracy of the needle placement, and sedation was given to decrease patient anxiety. Patient was taken to the procedure room and placed in prone position. The lumbar region was prepped using chlorhexidineX-2. Under strict sterile technique using AP fluoroscopy the bilateral sacral ala were identified and using ipsilateral oblique fluoroscopy ,the junction of the transverse process and the superior articulating process of the L4, L5 vertebra which corresponds to the fluoroscopy image of the eye of the Elmer dog for the medial branches were identified. Subsequently, after local infiltration of skin with lidocaine 1% 0.2 mL at each level , a 25-gauge 3.5" Quincke-type needle was p laced at the junction of the base of the transverse process and the superior articular process at the appropriate level as well as the sacral ala, and the needle was advanced until the periosteum contacted, needle placement confirmed with AP and oblique fluoroscopy, 0.2 mL of Isovue 200 per level was injected which revealed no vascular uptake and after negative aspiration, 0.5 mL of lidocaine 4 % was injected at each level and the needle subsequently removed . At the end of the procedure and the needles were removed and a bandage applied after the skin was cleaned. The patient was taken to recovery room in stable condition and monitors in the recovery room for 20-30 minutes and discharged home in stable condition after discharge criteria met and patient will follow up for repeat procedure in 2 weeks EBL: Minimal COMPLICATION: None.
--- NOTE | 2019-08-13 11:05 | FL ---
Fluoroscopy HISTORY: Pain 5 seconds fluoroscopy time supplied to the referring clinician. 3 intraoperative C-arm images docume nt the procedure. See dictated report from anesthesia.
== END | disposition home or self-care (01) ==
LOC: ORPAIN 06:53
PROVIDERS: ATTEND Anesthesiology
DX: G89.29 Other chronic pain (principal); M47.26 Other spondylosis with radiculopathy, lumbar region; M51.16 Intervertebral disc disorders with radiculopathy, lumbar region; Z79.51 Long term (current) use of inhaled steroids; Z79.899 Other long term (current) drug therapy; Z87.891 Personal history of nicotine dependence
CPT/HCPCS: 64493; 64494; J2250; Q9966; 99152

== ENCOUNTER → 2019-09-09 | Day surgery (SDC) | payer OTHER ==
[2019-09-07 11:06] VITALS: BMI 18.3
[~2019-09-09] MED LIST changes: +BUPIVACAINE (PF) 0.5% 30 ML VIAL ONE; +MIDAZOLAM 2 MG/2 ML VIAL ONE; +fentaNYL (PF) 50 MCG/ML 2 ML AMP ONE; +methylPREDNISolone ACETATE 40 MG/ML 1 ML VIAL ONE
[2019-09-09 08:37] VITALS: RESP 16; TEMP 97.4
--- NOTE | 2019-09-09 09:10 | P.PCN ---
Date of Procedure: 09/09/19 Procedure(s) Performed: PREOPERATIVE DIAGNOSIS : 1- Lumbar spondylosis with Facet Arthropathy without myelopathy . POSTOPERATIVE DIAGNOSIS: 1- Lumbar spondylosis with Facet Arthropathy without myelopathy . PROCEDURE: Diagnostic bilateral L3 , L4 , and L5 medial branch block under fluoroscopy guidance(fluoroscopy images available in the radiology Department ) ( To target the facet joint between L4-5 , and L5-S1 ) ANESTHESIA: Local with Ropivacain 0.5 % 6 ml , moderate sedation with intravenous Versed 1 mg and Fentanyl 50 mcg. EBL: Minimal COMPLICATION: None. IV FLUIDS: 100 mL of normal saline. PROCEDURE INDICATION: Chronic low back pain secondary to Facet arthropathy unresponsive to conservative treatment. PROCEDURE DESCRIPTION: the patient was seen and identified in the preop holding area , risks and benefits and possible complications of the procedure and alternative were discussed with the patient, and the patient agreed to proceed with the procedure and signed the consent IV was started and vital signs monitored during the procedure and fluoroscopy was used to maximize the benefit and accuracy of the needle placement, and sedation was given to decrease patient anxiety, patient was taken to the procedure room and placed in prone position vital signs monitored in the back prepped with chlorhexidine X3 then under strict sterile technique using a right oblique fluoroscopy ,the junction of the transverse process and the superior articulating process of the right L3 , L4 , and L5 vertebra which corresponding to the fluoroscopy image of the eye of the Elmer dog on the block side for the medial branches and subsequently , after local infiltration of skin and subcu tissuies with Ropivacaine 0.5 % , one mL at each level ,then 22-gauge Quincke-type needles , 3 needle was used , each one of them placed at the junction of the base of the transverse process and the superior articular process at the appropriate level, and the needle was advanced until the periosteum contacted, needle placement confirmed with AP oblique and lateral view and after appropriate needle placement confirmed, and after negative aspiration for heme and CSF and there was no paresthesia 1-1/2 mL of Ropivacaine 0.5% mixed with 20 mg Depo-Medrol , then half mL injected at each level after negative aspiration the needle subsequently removed and the same procedure repeated for the left side at left side at L3 , L4 and L5 levels. At the end of the procedure and the needles removed and a bandage applied after the skin was cleaned the cleaning solution patient taken to recovery room in s table condition and monitors in the recovery room for 20-30 minutes and discharged home in stable condition after discharge criteria met and patient will follow up with the pain clinic in 2-4 weeks
[2019-09-09 09:38] VITALS: BP 108/79; PULSE 83
--- NOTE | 2019-09-09 09:51 | FL ---
EXAMINATION TYPE: FL guided pain mgmt statistic DATE OF EXAM: 09/09/2019 FLUOROSCOPY Fluoroscopy time of 7 seconds was used during bilateral lumbar facet blocks. 4 image/s document/s th e procedure.
== END ==
LOC: ORPAIN 07:17
PROVIDERS: ATTEND Specialist
DX: G89.29 Other chronic pain (principal); M47.816 Spondylosis without myelopathy or radiculopathy, lumbar region; Z98.51 Tubal ligation status; Z91.09 Other allergy status, other than to drugs and biological substances
CPT/HCPCS: 64493; 64494; J2250; J1030; J3010; 99152

== ENCOUNTER → 2019-09-23 | Outpatient (CLI) | payer OTHER ==
[2019-09-23 11:49] VITALS: BP 133/68; PULSE 84; RESP 16
--- NOTE | 2019-09-23 12:34 | P.PAINPG ---
Subjective Progress Note Date: 09/23/19 This is a follow-up visit for this 54 years old female with a chronic history of severe low back pain with radiation to the lower extremity, she is diagnosed with lumbar degenerative disc disease ,and lumbar spondylosis with lumbar facet arthropathy, previously we have done lumbar epidural steroid injection under fluoroscopy guidance x2 , she had short-term benefit from both of them, a few weeks ago we have done diagnostic medial branch block lumbar area L3, L4,L5 bilaterally, and she reported that her pain level was 9/10 before the first block and dropped to 0/10 after the block, and the second block her pain was 10 over 10 before the block , pain dropped to 0/10 after the block, the pain relie f was for short-term, the pain is constant and increases with any activity, she denies any motor or sensory deficits, no fever or night sweats she continue to use Flexeril and Ultram for pain and she had some benefit from it, and she had no side effects from the medication, she is getting prescription refills from her primary care Objective - Vital Signs Vital signs: Vital Signs Temp Pulse 84 09/23/19 11:45 Resp 16 09/23/19 11:45 BP 133/68 09/23/19 11:45 Pulse Ox 92 L 09/23/19 11:45 - Exam -Constitutiona : Cooperative , not in acute distress . -HEENT : nech : supple , no Lymphadenopathy , normal thyroid size . : eyes : no ptosis , no icterus, no photophobia . - neurologic : Cranial nerve II to XII intact , no focal neurological deffecit . -psychatric : alert , oriented X 3 , appropriate affect , intact judgment and insight . -Lymphatic : no Lymphadenopathy . - musculoskeltal : Lumber spine moter stegnth lower extremities ,thigh and legs 5/5 Right side , 5/5 Left side deep tendon reflexes : normal Knee Jerk , normal ankle Jerk lumber facet Loading Test =positive Right , positive Left Range of motion of the lumbar spine Flexion 30 degrees, extension 10 degrees strait leg raising test = positive at 30 degree Fabere test= positive Right , and positive LT . Sever tenderness over the Sacroiliac joint on the Right , and Left sides MRI of the lumbar spine L4 5 bulging disc disease, L5-S1 moderate to severe neuroforaminal stenosis Assessment and Plan Plan: Assessment and plan= 1-chronic low back pain secondary to lumbar spondylosis with lumbar facet arthropathy, and lumbar degenerative disc disease Patient had excellent pain relief after diagnos tic medial branch block done on 2 different occasions, it would be good candidate to have radiofrequency thermocoagulation of the medial branch lumbar area, the patient will be scheduled for RFA of the left side medial branch at l3, L4, L5 and later on we will do the right side Time with Patient: Less than 30 PQRS Measure Charge Sheet Measure #130: Documentation of Current Meds in Medical Chart: Patient's medications documented in chart Measure #226: Tobacco Use: Screen & Cessation Intervention: Pt not a tobacco user Measure #111: Pneumonia Vaccination: Pneumococcal vaccine administered or previously received Measure #47: Advance Care Plan: Advance care planning discussed & documented, pt chose/unable to give Measure #412: Opioid Treatment Agreement: No documentation of signed opioid treatment agreement Measure #408: Opioid Therapy Follow-up Evaluation: Patient had NO f/u eval minimum every 3 months during opioid therapy Measure #317: Preventitive Care & Scrn High Bld Press & F/U: Normal blood pressure, f/u not required Measure #128: Body Mass Index (BMI) Screening & Follow-up: BMI documented BELOW normal parameters - f/u documented Measure #131: Pain Assessment & Follow-up: Pain positive & plan documented, Follow-up scheduled Measure #431: Unhealthy Alcohol Use Preventative Care & Scrn: Patient not identified as an unhealthy alcohol user PQRS Narrative: Smoking Status Former smoker Blood Pressure 133/68 Pain Intensity [Left Leg] 5 Pain Intensity [Left Buttock] 4 Scale Used Numeric (1 - 10) Hx Alcohol Use (MH) No Home Medications: Ambulatory Orders Albuterol Inhaler [Ventolin Hfa Inhaler] 1 - 2 puff INHALATION Q4HR PRN 05/15/17 Omeprazole 20 mg PO BID 05/15/17 amLODIPine [Norvasc] 10 mg PO DAILY 05/15/17 Albuterol Nebulized [Ventolin Nebulized] 2.5 mg INHALATION Q6H PRN #60 ml 05/18/17 Beclomethasone Dipropionate [Qvar 80 mcg] 1 puff INHALATION BID 05/15/19 Cyclobenzaprine [Flexeril] 10 mg PO BID PRN 05/15/19 Gabapentin [Neurontin] 300 mg PO BID 05/15/19 Montelukast [Singulair] 10 mg PO DAILY 05/15/19 Benralizumab [Fasenra] 30 mg SQ Q60D 06/04/19 traMADol HCL [Ultram] 50 mg PO BID PRN 06/04/19 Controlled Substance Measures - Controlled Substance Measures Is patient prescribed a controlled substance at discharge?: No
== END | disposition home or self-care (01) ==
LOC: PNWHC3 11:25
PROVIDERS: ATTEND Specialist
DX: G89.29 Other chronic pain (principal); M51.36 Other intervertebral disc degeneration, lumbar region; M47.816 Spondylosis without myelopathy or radiculopathy, lumbar region; M46.96 Unspecified inflammatory spondylopathy, lumbar region; Z87.891 Personal history of nicotine dependence; Z79.899 Other long term (current) drug therapy
CPT/HCPCS: 99211

== ENCOUNTER 2019-10-14 06:32 | Day surgery (SDC) | payer OTHER ==
[2019-10-12 16:13] VITALS: BMI 18.3
[~2019-10-14 06:32] MED LIST changes: -IV FLUID CONTINUATION 1,000 ML IV ONE; -LIDOCAINE 1% 20 ML VIAL (10MG/ML) FOR IV START INTRADERMA ONE
[2019-10-14] MEDS ORDERED: LIDOCAINE 1% (10MG/ML) FOR IV START INTRADERMA ONE (07:00)
[2019-10-14 07:01] VITALS: TEMP 97.1
--- NOTE | 2019-10-14 07:09 | P.GSHP ---
History of Present Illness H&P Date: 10/14/19 This is 54 years old female with a history of severe chronic low back pain she is diagnosed with lumbar degenerative disc disease and lumbar spondylosis, she had positive result after the diagnostic medial branch block lumbar area 2, she is here today to have radiofrequency thermocoagulation of the median branch lumbar area on the left side at L3, L4, L5 Past Medical History Past Medical History: Chest Pain / Angina, COPD, Deep Vein Thrombosis (DVT), GERD/Reflux, Hypertension, Musculoskeletal Disorder, Osteoarthritis (OA), Pneumonia Additional Past Medical History / Comment(s): hx of rt groin DVT, DDD, Herniated disk in lumbar, Sciatica. Bruises easily, awaiting test results. Hx Rt anterior leg pain, edema - subsided. History of Any Multi-Drug Resistant Organisms: None Reported Past Surgical History: Cholecystectomy, Tubal Ligation Additional Past Surgical History / Comment(s): Pain clinic procedures Past Anesthesia/Blood Transfusion Reactions: No Reported Reaction Additional Past Anesthesia/Blood Transfusion Reaction / Comment(s): hx vertigo Smoking Status: Former smoker - Past Family History Father Family Medical History: Cancer Additional Family Medical History / Comment(s): prostate cancer Mother Family Medical History: COPD Brother(s) History Unknown: Yes Sister(s) History Unknown: Yes Medications and Allergies Home Medications Medication Instructions Recorded Confirmed Type Albuterol Inhaler [Ventolin Hfa 1 - 2 puff INHALATION Q4HR PRN 05/15/17 10/14/19 History Inhaler] Omeprazole 20 mg PO BID 05/15/17 10/14/19 History amLODIPine [Norvasc] 10 mg PO DAILY 05/15/17 10/14/19 History Albuterol Nebulized [Ventolin 2.5 mg INHALATION Q6H PRN #60 ml 05/18/17 10/14/19 Rx Nebulized] Beclomethasone Dipropionate [Qvar 1 puff INHALATION BID 05/15/19 10/14/19 History 80 mcg] Cyclobenzaprine [Flexeril] 10 mg PO BID PRN 05/15/19 10/14/19 History Gabapentin [Neurontin] 300 mg PO BID 05/15/19 10/14/19 History Montelukast [Singulair] 10 mg PO DAILY 05/15/19 10/14/19 History Benralizumab [Fasenra] 30 mg SQ Q60D 06/04/19 10/14/19 History traMADol HCL [Ultram] 50 mg PO BID PRN 06/04/19 10/14/19 History Allergies Allergy/AdvReac Type Severity Reaction Status Date / Time No Known Allergies Allergy Verified 10/14/19 06:51 Surgical - Exam Vital Signs Temp Pulse Resp BP Pulse Ox 97.1 F L 84 16 134/80 95 10/14/19 06:48 10/14/19 06:48 10/14/19 06:48 10/14/19 06:48 10/14/19 06:48 -Constitutiona : Cooperative , not in acute distress .. - Respiratory : Chest clear to auscultations Bilaterally , no wheezing , no Rhonchi . - Cardiovascula : regular rate and rhythem , S1 , S2 , no S3 , no S4. - Gastrointestina : abdomen soft no tenderness , bowel sounds , no organomegally - neurologic : Cranial nerve II to XII intact , no focal neurological deffecit . -psychatric : alert , oriented X 3 , appropriate affect , intact judgment and insight . - musculoskeltal : Cervical Spine motor stregnth in the deltoid and b iceps, normal right side , normal Left side Lumber spine moter stegnth lower extremities ,thigh and legs 5/5 Right side , 5/5 Left side Fabere test= positive Right , and positive LT . Assessment and Plan Plan: Assessment and plan=1-lumbar degenerative disc disease. 2-lumbar spondylosis with lumbar facet arthropathy. Patient had positive result after the diagnostic medial branch block and she is here for our of a of the medial branch lumbar area on the left side at L3, L4, L5, she will come in a few weeks to do the right side Time with Patient: Less than 30
--- NOTE | 2019-10-14 07:44 | P.PCN ---
Date of Procedure: 10/14/19 Procedure(s) Performed: PREOPERATIVE DIAGNOSIS: 1-Lumbar Spondylosis with Facet Arthropathy without myelopathy. 2- Lumber degenerative disc disease POSTOPERATIVE DIAGNOSIS: 1- Lumbar Spondylosis with Facet Arthropathy without myelopathy. 2- Lumber degenerative disc disease PROCEDURES : Left Radiofrequency thermocoagulation, L3 , L4 , and L5 medial branch, with fluoroscopic guidance (fluoroscopy images available in the radiology department) ( to denervate the facet joint at L4-5 ,and L5-S1 levels ) ANESTHESIA: Moderate sedation with intravenous versed 1 mg and fentaneyl 100 mcg, and local infiltration with Ropivacaine 0.5 % . EBL: Minimal PROCEDURE INDICATION: The patient with low back pain secondary to lumbar facet arthropathy who had more than 50% relief of her pain with previous diagnostic lumbar medial branch block with bupivacaine. PROCEDURE DESCRIPTION / TECHNIQUE: The patient was seen and identified in the preoperative area. Risks, benefits, complications, including but not limited to risk of infection ,bleeding , allergic reactions to the medications and no complete pain releife , and alternatives were discussed with the patient, the patient agreed to proceed with the procedure and signed the consent. IV was started. Vital signs remained stable throughout the procedure. Patient was taken to the OR and time out was completed. The patient was placed in the prone position on the procedure table. The lumber area was prepped and draped in the usual sterile fashion. . Vital signs were closely monitored during the procedure .IV sedation was used during the procedure to decrease patients anxiety. Using AP and then oblique fluoroscopy, the ``eye of the Elmer dog corresponding to the connection between the superior and transverse articular processes of left L3, L4, and L5 were identified, marked, and localized with 1% lidocaine. Subsequently, a 18 [id number] radiofrequency cannula with a 10-mm active tip was advanced guided by fluoroscopy to each of the``eyes of the Elmer dog at left L3, L4, and L5. Each site then underwent sensory testing at 50 Hz and 0 to 1 volt and motor testing at 2.5 Hz and 0 to 3 volt with local stimulation, but no radicular symptoms down the legs. Thereafter the left L3, L4 , and L5 sites underwent radiofrequency thermocoagulation at 80 degrees celsius for 90 seconds after injecting 0.5 ml of PF Ropivacaine 1ml, then after the thermocoagulation done , 1 ml of the block solution containing Depo-Medrol 40 mg and 3 ml of Ropivacaine 0.5% was injected at the L3 , L4 , and L5 , levels after negative aspiration of CSF and blood and with no paresthesias. Cannulas were retracted while injecting lidocaine 1% until the needle is out. At the end of the procedure, the skin was cleansed and bandages were applied. COMPLICATIONS: No acute complications. DISPOSITION / PLANS: The patient was placed in a supine position and transferred to the recovery area in a stable condition for observation and was discharged from the recovery room after meeting discharge criteria. Home discharge instructions given to the patient by the staff. The patient was reexamined prior to discharge. The patient will schedule a follow up in the clinic in 2-4 weeks.
[2019-10-14] MEDS ORDERED: IV FLUID CONTINUATION 1,000 ML IV ONE (07:48)
[2019-10-14 07:52] VITALS: RESP 18
[2019-10-14 08:06] VITALS: BP 129/78; PULSE 78
--- NOTE | 2019-10-14 11:26 | FL ---
Fluoroscopy HISTORY: Pain 11 seconds fluoroscopy time supplied to the referring clinician. 4 intraoperative C-arm images docum ent the procedure. See dictated report from anesthesia.
== END 2019-10-14 08:18 | disposition home or self-care (01) ==
LOC: ORPAIN 06:32
PROVIDERS: ATTEND Specialist
DX: M47.816 Spondylosis without myelopathy or radiculopathy, lumbar region (principal); M51.36 Other intervertebral disc degeneration, lumbar region; J44.9 Chronic obstructive pulmonary disease, unspecified; K21.9 Gastro-esophageal reflux disease without esophagitis; I10 Essential (primary) hypertension; M51.26 Other intervertebral disc displacement, lumbar region; M19.90 Unspecified osteoarthritis, unspecified site; Z79.899 Other long term (current) drug therapy; Z79.891 Long term (current) use of opiate analgesic; Z79.51 Long term (current) use of inhaled steroids; Z87.891 Personal history of nicotine dependence; Z86.718 Personal history of other venous thrombosis and embolism; Z87.39 Personal history of other diseases of the musculoskeletal system and connective tissue; Z90.49 Acquired absence of other specified parts of digestive tract; Z98.51 Tubal ligation status; Z80.42 Family history of malignant neoplasm of prostate; Z82.5 Family history of asthma and other chronic lower respiratory diseases
CPT/HCPCS: 64635; 64636; J2250; J1030; J3010; 99152

== ENCOUNTER 2019-11-04 09:03 | Day surgery (SDC) | payer OTHER ==
[2019-10-28 09:19] VITALS: BMI 18.5
[~2019-11-04 09:03] MED LIST changes: -BUPIVACAINE (PF) 0.5% 30 ML VIAL ONE; -MIDAZOLAM 2 MG/2 ML VIAL ONE; -fentaNYL (PF) 50 MCG/ML 2 ML AMP ONE; -methylPREDNISolone ACETATE 40 MG/ML 1 ML VIAL ONE
[2019-11-04 10:03] VITALS: TEMP 97.7
--- NOTE | 2019-11-04 10:22 | P.PCN ---
Date of Procedure: 11/04/19 Description of Procedure: PREOPERATIVE DIAGNOSIS: Lumbar Facet Arthropathy without myelopathy POSTOPERATIVE DIAGNOSIS: Same PROCEDURES: RIGHT Radiofrequency thermocoagulation of L3-4, L4-5, L5-S1 medial branches, with fluoroscopic guidance ANESTHESIA: IV sedation with versed and fentanyl and local infiltration with lidocaine 1% 10 ml Imaging: Fluoroscopy was used, images where saved to the medical record PROCEDURE INDICATION: The patient with low back pain secondary to lumbar facet arthropathy who had more than 50% relief of pain with previous diagnostic lumbar medial branch block with local anesthetic. PROCEDURE DESCRIPTION / TECHNIQUE: The patient was seen and identified in the preoperative area. Risks, benefits, complications, including but not limited to risk of infection, bleeding, allergic reactions to the medications and no complete pain relief, and alternatives were discussed with the patient, the patient agreed to proceed with the procedure and signed the consent. IV was started. Vital signs remained stable throughout the procedure. Patient was taken to the OR and time out was completed. The patient was placed in the prone position on the procedure table. The lumber area was prepped and draped in the usual sterile fashion. Vital signs were closely monitored during the procedure. IV sedation was used during the procedure to decrease patient anxiety. Using AP and then oblique fluoroscopy, the eye of the Elmer dog corresponding to the connection between the superior and transverse articular processes of L4, L5, and sacral Ala were identified, marked, and localized with 1% lidocaine. Subsequently, a 20 [id number] radiofrequency cannula with a 10-mm active tip was advanced guided by fluoroscopy to the junction of the pedicle and transverse process of each identified level. Each site then underwent sensory testing at 50 Hz and 0 to 1 volt and motor testing at 2.5 Hz and 0 to 3 volt with local stimulation, no radicular symptoms sensed by the patient and no obvious motor stimulation noted. Thereafter the tested sites underwent radiofrequency thermocoagulation at 80 degrees celsius for 90 seconds after injecting 1 ml of PF lidocaine 1%. Then after the thermocoagulation was done, 1 ml of the block solution containing ropivaciane 0.5% was injected at the lesioned sites after negative aspiration of CSF and blood and with no paresthesias. Cannulas were retracted. At the end of the procedure, the skin was cleansed and bandages were applied. COMPLICATIONS: No acute complications. DISPOSITION / PLANS: The patient was placed in a supine position and transferred to the recovery area in a stable condition for observation and was discharged from the recovery room after meeting discharge criteria. Home discharge instructions given to the patient by the staff. The patient was reexamined prior to discharge. Patient will follow up as directed.
[2019-11-04] MEDS ORDERED: MIDAZOLAM 2 MG/2 ML VIAL ONE (10:31)
[2019-11-04] MEDS ORDERED: ROPIVACAINE 5MG/ML 20ML VIAL ONE (10:31)
[2019-11-04] MEDS ORDERED: LIDOCAINE 1% INJ 10MG/ML (20 ML MDV) ONE (10:31)
[2019-11-04] MEDS ORDERED: fentaNYL (PF) 50 MCG/ML 2 ML AMP ONE (10:31)
[2019-11-04] MEDS ORDERED: IV FLUID CONTINUATION 600 ML IV ONE (10:59)
[2019-11-04 11:05] VITALS: RESP 16
--- NOTE | 2019-11-04 11:06 | FL ---
EXAMINATION TYPE: FL guided pain mgmt statistic DATE OF EXAM: 11/04/2019 CLINICAL HISTORY: Low back pain. TECHNIQUE: Fluoroscopy. COMPARISON: None. FINDINGS: Fluoroscopic guidance was provided during pain relief procedure performed by Dr. Lemos . A total of 3 seconds of fluoroscopic time was utilized during the procedure and two spot images are acquired. Images acquired shows needle localization at several levels in the lower lumbar spine. IMPRESSION: As Above.
[2019-11-04 11:42] VITALS: BP 90/59; PULSE 77
== END 2019-11-04 12:15 | disposition home or self-care (01) ==
LOC: ORPAIN 09:03
PROVIDERS: ATTEND Hospitalist
DX: M47.816 Spondylosis without myelopathy or radiculopathy, lumbar region (principal)
CPT/HCPCS: 64635; 64636 ×2; J2250; J2001; J3010; J2795; 99152